=== PATIENT | male | born 1950 | race Caucasian/White ===

== ENCOUNTER 2017-09-07 19:29 | Emergency (ER) | payer OTHER ==
[2017-09-07 19:42] VITALS: PULSE 74; TEMP 97.3; BMI 25.0
--- NOTE | 2017-09-07 20:39 | PDOC ---
History of Present Illness - General History Source: Patient Exam Limitations: No Limitations - History of Present Illness Initial Comments: 09/07/17 20:44 The patient is a 67 year old male with a significant past medical history of hypertension, arthritis, CVA x 2 (most recent: 7 years ago) who presents to the ED, via EMS, s/p alcohol consumption earlier today. Patient states he drank 3 glasses of wine over 1-4 pm earlier today. He states he has not been sleeping well at home and decided to sleep in his car before driving home to [place]. Neighbors called EMS secondary to being concerned after seeing patient sleeping in car. Police asked patient to be evaluated in the ED. Patient has no complaints at this time, has clear speech, steady gait and is asking to return home. Denies lightheadedness or dizziness. Denies headache. Denies any other symptoms. <Jayden Vaca - Last Filed: 09/07/17 20:45> <Tejas Ozuna - Last Filed: 09/09/17 06:41> - General Chief Complaint: Alcohol intoxication Stated Complaint: INTOX Time Seen by Provider: 09/07/17 19:55 Past History <Jayden Vaca - Last Filed: 09/07/17 20:45> - Suicide/Smoking/Psychosocial Hx Smoking History: Never smoked Have you smoked in the past 12 months: No Information on smoking cessation initiated: No Hx Alcohol Use: Yes Drug/Substance Use Hx: No <Tejas Ozuna - Last Filed: 09/09/17 06:41> - Past Medical History Allergies/Adverse Reactions: Allergies Allergy/AdvReac Type Severity Reaction Status Date / Time No Known Allergies Allergy Verified 09/07/17 19:41 Home Medications: Ambulatory Orders NK [No Known Home Medication] 09/07/17 Review of Systems - Review of Systems Able to Perform ROS?: Yes Comments:: 09/07/17 20:44 A complete review of 10 out of 10 review of systems is taken and is negative apart from what is previously mentioned below and in the HPI. <Jayden Vaca - Last Filed: 09/07/17 20:45> *Physical Exam - Vital Signs Last Vital Signs Temp Pulse Resp BP Pulse Ox 97.3 F L 74 19 114/60 98 09/07/17 19:38 09/07/17 19:38 09/07/17 19:38 09/07/17 19:38 09/07/17 19:38 - Physical Exam Comments: 09/07/17 20:45 Vitals: Triage Vital signs reviewed General Appearance: no acute distress, well nourished well developed, Head: Atraumatic, normocephalic Chest Wall: Nontender Cardiac: Regular rate and rhythm, no murmurs, no rubs, no gallops, Lungs: Clear to auscultation bilateral, good air movement bilaterally, Abdomen: Soft, nondistended, normal bowel sounds, nontender to palpation Rectal: Exam deferred Extremities: Full range of motion to all extremities, no cyanosis, clubbing, or edema Skin: Warm and dry, no rashes or lesions, no petechiae Neuro: AOX3; Cranial Nerves 2-12 grossly c intact, Strength intact to all extremities, Sensation intact to all extremities, gait normal Psych: normal mood, normal affect <Jayden Vaca - Last Filed: 09/07/17 20:45> - Vital Signs Last Vital Signs Temp Pulse Resp BP Pulse Ox 97.3 F L 74 19 114/60 98 09/07/17 19:38 04 19:38 09/07/17 19:38 09/07/17 19:38 09/07/17 19:38 <Tejas Ozuna - Last Filed: 09/09/17 06:41> Medical Decision Making - Medical Decision Making 09/07/17 20:45 The patient is a 67 year old male with a significant past medical history of hypertension, arthritis, CVA x 2 (most recent: 7 years ago) who presents to the ED, via EMS, s/p alcohol consumption earlier today. Patient has no complaints at this time, has clear speech, steady gait and is asking to return home. <Jayden Vaca - Last Filed: 09/07/17 20:45> - Medical Decision Making 09/07/17 20:35 Pt. states he has not been sleeping well at home, only 3 hrs last night. Prior to driving home after a few drinks, patient was found sleeping in car. Upon arrival to ED Pt. not clinically intoxicated. However given that pt. will be returning home by care will check etoh level Etoh level 111 at 840. Given metabolism of 16-20 mg/dl/hr by 1040 ,pt. will be clear for D/C Reevaluation 1130 WA/NAD clinically sober. Pt. stable for discharge observed in ED for 4 hours Findings the need for follow up and strict return instructions d/w patient. <Tejas Ozuna - Last Filed: 09/09/17 06:41> *DC/Admit/Observation/Transfer - Attestations Scribe Attestion: 09/07/17 20:45 Documentation prepared by Jayden Vaca, acting as manager of medical for Tejas Ozuna MD <Jayden Vaca - Last Filed: 09/07/17 20:45> <Tejas Ozuna - Last Filed: 09/09/17 06:41> Diagnosis at time of Disposition: Alcohol abuse - Discharge Dispostion Disposition: HOME Condition at time of disposition: Fair - Referrals Referrals: ON STAFF,NOT [Primary Care Provider] - - Patient Instructions - Post Discharge Activity
[2017-09-07 23:29] VITALS: BP 176/108
== END 2017-09-07 23:29 | disposition home or self-care (01) ==
LOC: SUPCPDRO 19:29 → JER 19:29
DX: F10.120 Alcohol abuse with intoxication, uncomplicated (principal); Y90.5 Blood alcohol level of 100-119 mg/100 ml; I10 Essential (primary) hypertension; M12.9 Arthropathy, unspecified; Z86.73 Personal history of transient ischemic attack (TIA), and cerebral infarction without residual deficits; G47.9 Sleep disorder, unspecified
CPT/HCPCS: 36415; 80307; 99282-25